=== PATIENT | male | born 1980 | race Caucasian/White ===

== ENCOUNTER 2024-11-05 15:46 | Outpatient (CLI) | payer OTHER, SELFPAY | END 2024-11-05 15:47 | disposition home or self-care (01) | LOC: NFLDREF 11-07 03:53 | PROVIDERS: Visit Provider Physician Assistant Medical | DX: E55.9 Vitamin D deficiency, unspecified (principal); R53.83 Other fatigue; F51.01 Primary insomnia | CPT/HCPCS: 82306; 82607; 84443 ==